=== PATIENT | male | born 1990 | race African-American/Black ===

== ENCOUNTER 2017-11-16 02:49 | Emergency (ER) | payer MEDICAID, OTHER ==
[~2017-11-16] VITALS: Ht 175.3 cm; Wt 100.0 kg
[2017-11-16] MEDS ORDERED: SODIUM CHLORIDE 0.9% 1,000 ML IV ONE (03:38)
[2017-11-16 04:19] LABS: BASOPHILS % 0.3 % (0.0-2.0); EOSINOPHILS % 0.6 % (0.0-5.0); HEMATOCRIT. 47.4 % (42.0-52.0); HEMOGLOBIN. 15.4 g/dL (14.0-18.0); LYMPHOCYTES % 12.7 % (20.0-50.0); MEAN CORPUSCULAR HEMOGLOBIN 26.6 pg (28.0-32.0); MEAN CORPUSCULAR VOLUME 82.1 fL (80.0-94.0); MEAN PLATELET VOLUME 9.4 fl (7.4-10.4); MONOCYTES % 7.3 % (2.0-8.0); NEUTROPHILS % 79.1 % (40.0-76.0); PLATELET 206 x1000/uL (130-400); RED BLOOD CELL COUNT 5.78 mill/uL (4.7-6.1)
[2017-11-16 04:34] LABS: CHLORIDE 104 mEq/L (98-107); ETHANOL BLOOD 11 mg/dL
[2017-11-16 07:49] VITALS: BP 126/68
== END 2017-11-16 08:05 | disposition home or self-care (01) ==
LOC: ER 02:49
DX: F12.929 Cannabis use, unspecified with intoxication, unspecified (principal); F14.10 Cocaine abuse, uncomplicated
CPT/HCPCS: 36415; 80048; 80307; 80329; 85025; 96360; 99284; G0482; J7030; Z7610

== ENCOUNTER 2018-05-27 13:12 | Emergency (ER) | payer OTHER ==
[~2018-05-27] VITALS: Ht 177.8 cm; Wt 109.0 kg
[2018-05-27] MEDS ORDERED: SODIUM CHLORIDE 0.9% 1,000 ML IV ONE (13:51)
[2018-05-27] MEDS ORDERED: ONDANSETRON HCL 4MG/2ML INJ IV STA (13:51)
[2018-05-27] MEDS ORDERED: LORAZEPAM 2MG/ML CPJ IV ONE (14:00)
[2018-05-27 15:52] LABS: BASOPHILS % 0.9 % (0.0-2.0); EOSINOPHILS % 0.6 % (0.0-5.0); HEMATOCRIT. 44.9 % (42.0-52.0); LYMPHOCYTES % 18.1 % (20.0-50.0); MEAN CORPUSCULAR HEMOGLOBIN 27.7 pg (28.0-32.0); MEAN CORPUSCULAR VOLUME 83.3 fL (80.0-94.0); MONOCYTES % 8.5 % (2.0-8.0); NEUTROPHILS % 71.9 % (40.0-76.0); PLATELET 211 x1000/uL (130-400); RED BLOOD CELL COUNT 5.39 mill/uL (4.7-6.1); RED CELL DISTRIBUTION WIDTH 15.3 % (11.6-14.6)
[2018-05-27 16:00] LABS: CHLORIDE 104 mEq/L (98-107)
[2018-05-27 16:05] LABS: ETHANOL BLOOD < 10 mg/dL
[2018-05-27 17:37] VITALS: BP 123/82
== END 2018-05-27 17:45 | disposition home or self-care (01) ==
LOC: ER 13:39
DX: T40.5X1A Poisoning by cocaine, accidental (unintentional), initial encounter (principal); T40.7X1A Poisoning by cannabis (derivatives), accidental (unintentional), initial encounter; R00.2 Palpitations; F14.188 Cocaine abuse with other cocaine-induced disorder; F12.188 Cannabis abuse with other cannabis-induced disorder; F10.10 Alcohol abuse, uncomplicated; E03.9 Hypothyroidism, unspecified; Y90.0 Blood alcohol level of less than 20 mg/100 ml; E66.01 Morbid (severe) obesity due to excess calories; Z68.34 Body mass index [BMI] 34.0-34.9, adult; Y92.89 Other specified places as the place of occurrence of the external cause
CPT/HCPCS: 36415; 71045; 80053; 83690; 83735; 84484; 85025; 93005; 96374; 96375; 99285; G0482; J2060; J2405; J7030; Z7610